=== PATIENT | female | born 1985 | race Caucasian/White ===

== ENCOUNTER → 2017-02-07 | Outpatient (CLI) | payer BC ==
--- NOTE | 2017-02-08 06:31 | REP ---
Clinical: Anatomical evaluation. Comparison: None . Findings: Examination demonstrates a single live intrauterine in cephalic presentation. motion is identified by technologist. Placenta is noted anteriorly and grade eight one without evidence for placenta previa or abruption. Amniotic fluid volume is normal. Cervix measures 3.4 cm in length and appears closed. No evidence for nuchal cord. Gestational age by LMP 19 weeks 5 days with JOSE R 06/29/2017 . Gestational age by current measurements 20 weeks 4 day with JOSE R 06/23/2017 . FHR equals 141 beats per minute. BPD 5.1 21 weeks 2 days HC 18.2 20 weeks 4 days AC 15.1 20 weeks 2 days FL 3.3 20 weeks 2 days HL 3.1 20 weeks 2 days HC/AC ratio 1.21 Estimated weight 314 grams ( 71st percentile). Anatomical assessment demonstrates normal structures including cranium, choroid plexus, cavum, cerebellum/posterior fossa, facial features, lungs, four-chamber heart/ventricular outflow tracts, diaphragm, stomach, cord insertion/three-vessel cord, kidneys/bladder, spine, and extremities. Impression: Single live intrauterine in cephalic presentation demonstrating appropriate interval growth. Anatomical assessment is complete and normal. Incidental echogenic focus within the left cardiac ventricle likely prominent chordae tendineae. Signed by Rajendra Hampton MD 02/08/2017 06:22 A
== END ==
LOC: M RAD 11:09
PROVIDERS: ATTEND Specialist
DX: Z36 Encounter for antenatal screening of mother (principal)

== ENCOUNTER → 2017-03-21 | Outpatient (CLI) | payer BC ==
[2017-03-21 19:48] LABS: BASO % 0.2 % (0.0-1.0); EOS # 0.3 K/mm3 (0.0-0.50); EOS % 3.3 % (0.0-3.0); LARGE UNSTAINED CELL # 0.1 K/mm3 (0.0-0.4); LARGE UNSTAINED CELL % 0.8 % (0.0-4.0); LYMPH # 1.5 K/mm3 (1.5-6.5); LYMPH % 15.2 % (24.0-44.0); MEAN CORPUSCULAR HGB CONC 33.1 g/dl (32.0-36.5); MEAN CORPUSCULAR VOLUME 90.4 fl (80.0-96.0); MONO # 0.6 K/mm3 (0.0-0.8); MONO % 5.8 % (0.0-5.0); NEUTROPHILS # 7.1 K/mm3 (1.8-7.7); NEUTROPHILS % 74.7 % (36.0-66.0); PLATELET COUNT, AUTOMATED 304 k/mm3 (150-450); RED CELL DISTRIBUTION WIDTH 12.3 % (11.5-14.5)
[2017-03-22 08:42] LABS: WHITE BLOOD COUNT 9.5 K/mm3 (4.0-10.0)
== END ==
LOC: M LAB 15:58
PROVIDERS: ATTEND Specialist
DX: Z34.82 Encounter for supervision of other normal pregnancy, second trimester (principal)

== ENCOUNTER → 2017-04-19 | Outpatient (CLI) | payer BC | LOC: M LAB 07:39 | PROVIDERS: ATTEND Specialist | DX: R73.01 Impaired fasting glucose (principal) ==

== ENCOUNTER → 2017-06-07 | Outpatient (REF) | payer BC | LOC: M LAB REF 16:56 | PROVIDERS: ATTEND Obstetrics & Gynecology | DX: Z34.83 Encounter for supervision of other normal pregnancy, third trimester (principal) ==

== ENCOUNTER 2017-06-26 23:16 | Inpatient (IN) | payer BC ==
[~2017-06-26] VITALS: Ht 162.6 cm; Wt 81.0 kg
[2017-06-26] MEDS ORDERED: LACTATED RINGER'S 1000 ML IV STA (23:53)
[2017-06-26] MEDS ORDERED: PENICILLIN G POTASSIUM IV 5 MU in D5W MINI-BAG PLUS 100 ML IV STA (23:53)
[2017-06-26] MEDS ORDERED: LR 1,000 ML IV SCH (23:53)
--- NOTE | 2017-06-27 00:15 | HPEPDOC ---
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 BREAST: . ABDOMEN: Gravid and non-tender to touch. FETUS: Is vertex (VTX) by sterile vaginal examination (SVE), fetus is vertex ( VTX) by Ted. HEART RATE: Regular rate and rhythm. LUNGS: Clear to auscultation (CTA). EXTREMITIES: No edema. No clonus. Deep tendon reflexes (DTRs) + 2. Pertinent Laboratoy Data Blood Type: A+ RBC Antibody Screen: Negative HIV: Negative Hepatitis B: Negative Hepatitis C: Unknown Rapid Plasma Reagin: Nonreactive Rubella: Immune Chlamydia/Gonorrhea: Negative Group B Streptococcus: Positive Glucose Tolerance Test: 147 (Three-hour GTT 77, 59, 91, 67) Diag/Inter Therapy [place] test. Low probability; female fetus Anatomy Ultrasound Ultrasound Date: Feb 07, 2017 Placenta Location: Anterior Normal Anatomy: Yes Placenta Previa: No Other Ultrasounds 12/06/2016, dating ultrasound confirmed dates and viability Steroid Therapy Steroid Therapy: No Vaginal Examination Dilation: 4 cm Effacement: 80% Station: -2 Presentation: Cephalic presentation Assessment Heart Rate (FHR): 135 Variability: Moderate Accelerations: Positive Decelerations: None Tocometer Contractions: Yes Frequency: every 2-2 min. Duration: greater than 60 seconds Strength: palpated as moderate Assessment/Plan Assessment Akin is a 31-year-old (G) 1 para (P) 0 -0 -0-0 at 40 + 0 weeks by 11- week ultrasound. Presents to Labor and Delivery (L&D), in labor. She reports onset of contractions about 7:30 this evening. Spontaneous rupture of membranes , clear fluid upon arrival to the unit. She is breathing with contractions, and is planning an epidural for labor coping. Plan Admit and orient. [employer] and consent. Diet: Clear liquids. Group B Streptococcus (GBS) positive. Labs and intravenous (IV) per unit protocol. Counseled on Pitocin and induction of labor (IOL). Lactated Ringers (LR): Bolus 500 mL, then at 125 mL/hr. Anticipate. Normal spontaneous vaginal . C-S as appropriate. Jennie Pulido CNM Jun 27, 2017 00:15
[2017-06-27 00:43] LABS: MEAN CORPUSCULAR HEMOGLOBIN 29.5 pg (27.0-33.0); MEAN CORPUSCULAR HGB CONC 34.7 g/dl (32.0-36.5); MEAN CORPUSCULAR VOLUME 84.9 fl (80.0-96.0); PLATELET COUNT, AUTOMATED 286 10^3/uL (150-450); RED CELL DISTRIBUTION WIDTH 13.8 % (11.5-14.5)
[2017-06-27] MEDS ORDERED: FENTANYL 2MCG/ML ROPIVACAINE 0.2% IN 0.9% NACL 200ML IVBAG As Ordered ONE (00:50)
--- NOTE | 2017-06-27 03:05 | IPNPDOC ---
Text Note Date of Service The patient was seen on 06/27/17. NOTE Comfortable with epidural UC 2-3 minutes apart x 60 sec, strong FH 130, moderate variability SVE C/C/0 Labor down. Anticipate NSVB VS,Fishbone, I+O VS, Fishbone, I+O Laboratory Tests 06/27/17 00:22 Red Blood Count 3.90 L, Mean Corpuscular Volume 84.9, Mean Corpuscular Hemoglobin 29.5, Mean Corpuscular Hemoglobin Concent 34.7, Red Cell Distribution Width 13.8 Jennie Pulido CNM Jun 27, 2017 03:05
[2017-06-27] MEDS ORDERED: PENICILLIN G POTASSIUM IV 2.5 MU in APPROPRIATE DILUENT 1 EA IV SCH (04:00)
[2017-06-27] MEDS ORDERED: OXYTOCIN 30 UNITS IN 0.9% NaCl 500ML IV BAG (J2590) As Ordered ONE (04:20)
[2017-06-27] MEDS ORDERED: OXYTOCIN DRIP 30 UNITS in APPROPRIATE DILUENT 1 EA IV SCH (05:46)
--- NOTE | 2017-06-27 05:54 | DNPDOC ---
[facility] Delivery Note Delivery Note DATE OF DELIVERY: 06/27/2017 PREDELIVERY DIAGNOSIS: 40-0/7 weeks' gestation and labor. POST DELIVERY DIAGNOSIS: Delivered. PROCEDURE: Spontaneous vaginal delivery. DIRECTOR OF EVENTS: Jennie Pulido ANESTHESIA: Epidural. ESTIMATED BLOOD LOSS: 300 mL. FINDINGS: 7 pound 12 ounce female infant, Score, 8/, 9, no nuchal cord. Compound presentation, right posterior arm DELIVERY SUMMARY: Patient is a 31-year-old 1 now para 1 -0 -0-1 who was admitted to labor and delivery for labor. Patient reported abrupt onset of contractions at 1930 on June 26. Spontaneous rupture of membranes upon arrival to the unit for clear fluid at 2355. She utilized an epidural for labor coping. Fully dilated at 0257. Labor down and started pushing at 0420. Viable female child delivered without difficulty,VILMA compound with the right posterior arm at 0509. Spontaneous respirations. Transitioned on the maternal abdomen. Cord doubly clamped and cut by father of the baby under my direction once the pulsations ceased. Apgars 8 and 9. Placenta delivered Rdz intact with a three-vessel cord at 0517. Fundus firmed with massage and IV Pitocin bolus. Cervix, vagina and perineum inspected. First-degree vaginal and perineal laceration repaired in the usual fashion with 3-0 Vicryl Rapide. Estimated blood loss 300 mL. Infant weight 3510 g, 7 lbs. 12 oz. Parents are naming their daughter Scarlet. Sponge, sharp and instrument count correct at the close of the procedure Jennie Pulido CNM Jun 27, 2017 05:54
[2017-06-27] MEDS ORDERED: MOM 30ML SUSPENSION UDC PO PRN (06:00)
[2017-06-27] MEDS ORDERED: ACETAMINOPHEN 500 MG TAB PO PRN (06:00)
[2017-06-27] MEDS ORDERED: RHOGAM 300 MCG (1500 IU) INJ (J2790) IM SCH (06:00)
[2017-06-27] MEDS ORDERED: ANUSOL HC CREAM 30GM TOP PRN (06:00)
[2017-06-27] MEDS ORDERED: DOCUSATE SODIUM 100 MG CAP PO PRN (06:00)
[2017-06-27] MEDS ORDERED: DIBUCAINE 1% OINTMENT 30GM TOP PRN (06:00)
[2017-06-27] MEDS ORDERED: METHYLERGONOVINE MALEATE 0.2 MG TAB PO PRN (06:00)
[2017-06-27] MEDS ORDERED: MEASLES,MUMPS,RUBELLA VACCINE INJ (MMR-II) (90707) SC SCH (06:00)
[2017-06-27 07:20] VITALS: BP 127/74
[2017-06-27] MEDS: PRENATAL VITAMINS CHEWABLE TABLET PO SCH (09:00)
[2017-06-27 09:14] VITALS: BP 130/71
[2017-06-27 18:00] VITALS: BP 131/73
[2017-06-28] MEDS: IBUPROFEN 800 MG TAB PO PRN ×2 (01:33→14:47)
[2017-06-28 06:02] VITALS: BP 114/60
[2017-06-28] MEDS: PRENATAL VITAMINS CHEWABLE TABLET PO SCH (11:26)
[2017-06-28 17:47] VITALS: BP 122/68
[2017-06-29 06:00] VITALS: BP 130/67
[2017-06-29] MEDS ORDERED: MOTR200T44 PO (07:47)
[2017-06-29] MEDS ORDERED: MILKSUS PO (07:47)
[2017-06-29] MEDS ORDERED: PRENTAB9 PO (07:47)
[2017-06-29] MEDS ORDERED: TYLE325T5 PO (07:47)
[2017-06-29] MEDS ORDERED: COLA100C5 PO (07:47)
[2017-06-29] MEDS: PRENATAL VITAMINS CHEWABLE TABLET PO SCH (09:00)
[2017-06-29] MEDS: IBUPROFEN 800 MG TAB PO PRN (09:00)
== END 2017-06-29 11:00 | disposition home or self-care (01) | DRG 560 ==
LOC: M LDO 23:16 → M LDI 23:54 → M OBS 06-27 09:05
PROVIDERS: ADMIT Advanced Practice Midwife; ATTEND Advanced Practice Midwife
PROC: 10E0XZZ Delivery of Products of Conception, External Approach (ICD-10-PCS; principal; 2017-06-27)
PROC: 0HQ9XZZ Repair Perineum Skin, External Approach (ICD-10-PCS; 2017-06-27)
DX: O48.0 Post-term pregnancy (principal); O64.5XX0 Obstructed labor due to compound presentation, not applicable or unspecified; O99.824 Streptococcus B carrier state complicating childbirth; Z37.0 Single live birth; Z3A.40 40 weeks gestation of pregnancy; O70.0 First degree perineal laceration during delivery

== ENCOUNTER → 2018-09-17 | Outpatient (CLI) | payer BC ==
[~2018-09-17] MED LIST: COLA100C5 PO; MILK120011 PO; MOTR200T44 PO; PRENTAB9 PO; TYLE325T5 PO
[2018-09-17 13:22] LABS: BASO # 0.1 10^3/uL (0.0-0.2); BASO % 0.7 % (0.0-1.0); EOS # 0.2 10^3/uL (0.0-0.50); HEMATOCRIT 38.2 % (36.0-47.0); HEMOGLOBIN 13.1 g/dl (12.0-15.5); LYMPH # 1.3 10^3/uL (1.5-4.5); LYMPH % 14.2 % (24.0-44.0); MEAN CORPUSCULAR HEMOGLOBIN 30.1 pg (27.0-33.0); MEAN CORPUSCULAR HGB CONC 34.3 g/dl (32.0-36.5); MEAN CORPUSCULAR VOLUME 87.8 fl (80.0-96.0); MONO # 0.5 10^3/uL (0.0-0.8); MONO % 5.7 % (0.0-5.0); NEUTROPHILS # 6.8 10^3/uL (1.8-7.7); NEUTROPHILS % 77.1 % (36.0-66.0); PLATELET COUNT, AUTOMATED 305 10^3/uL (150-450); RED BLOOD COUNT 4.35 10^6/uL (4.00-5.40); WHITE BLOOD COUNT 8.8 10^3/uL (4.0-10.0)
[2018-09-17 15:17] LABS: CHLAMYDIA DNA AMPLIFICATION NEGATIVE (NEGATIVE); GC DNA AMPLIFICATION NEGATIVE (NEGATIVE)
[2018-09-18 10:16] LABS: HEPATITIS C VIRUS ABY INDEX < 0.0 INDEX (<0.8); HIV 1&2 SCREEN CENTAUR NEGATIVE (NEGATIVE); RUBELLA IgG QUALITATIVE IMMUNE (IMMUNE)
== END ==
LOC: M SMT 09:36
PROVIDERS: ATTEND Advanced Practice Midwife
DX: O30.001 Twin pregnancy, unspecified number of placenta and unspecified number of amniotic sacs, first trimester (principal); Z3A.00 Weeks of gestation of pregnancy not specified

== ENCOUNTER → 2018-10-02 | Outpatient (CLI) | payer BC ==
--- NOTE | 2018-10-02 17:37 | REP ---
TWIN OB ULTRASOUND: Real-time sonographic evaluation of the gravid uterus is performed. There is a living diamniotic dichorionic twin gestation. Placenta anterior and grade 1. Placenta appears low lying. Approximate distance between the internal cervical os in the lower tip of the placenta is 8 mm but it should be noted that this is based on transabdominal images with a moderately distended bladder. More precise evaluation could be made with transvaginal imaging. There is no evidence of placental abruption. The cervix is closed and measures about 3.2 cm in length. Estimated gestational age is 14 weeks 2 days, EDC 03/31/2019. FETUS A: BPD 29 mm = 15 weeks 2 days HC 106 mm = 15 weeks 0 days HC 90 mm= 15 weeks 1 day Femur length 16 mm = 14 weeks 5 days HC/AC ratio 1.18 within normal range. Estimated weight 112 grams, 73rd percentile. heart rate 150 beats per minute. Lateral ventricles, posterior fossa, stomach, kidneys, bladder, and cord insertion was visualized and grossly unremarkable. position is breech on the maternal right side. Amniotic fluid appears within normal limits. FETUS B: BPD 29 mm = 15 weeks 1 day HC 104 mm = 14 weeks 6 days HC 89 mm= 15 weeks 1 day Femur length 16 mm = 14 weeks 6 days HC/AC ratio 1.17 within normal range. Estimated weight 111 grams, 71st percentile. heart rate 157 beats per minute. Lateral ventricles, posterior fossa, stomach and kidneys are visualized and are grossly unremarkable. position is vertex on the maternal right side. Amniotic fluid appears within normal limits. Recommend followup anatomic screening ultrasound exam at 20 weeks gestational age. Electronically Signed by Todd An MD 10/03/2018 11:41 A
== END ==
LOC: M SMT 12:51
PROVIDERS: ATTEND Advanced Practice Midwife
DX: O30.041 Twin pregnancy, dichorionic/diamniotic, first trimester (principal); Z3A.14 14 weeks gestation of pregnancy

== ENCOUNTER → 2018-11-13 | Outpatient (CLI) | payer BC ==
--- NOTE | 2018-11-13 20:04 | REP ---
Clinical: Twin gestation. Comparison: 10/02/2018 . Findings: Examination demonstrates diamniotic monochorionic twin gestation. Cervix measures 3.5 cm in length and appears closed. Concordant growth is noted. Gestational age by LMP at 20 weeks 2 days with estimated date of delivery 03/31/2019 . TWIN A: Twin A identified in cephalic presentation along the maternal right side. Placenta is noted anterior and grade I without evidence for placenta previa or abruption. motion is appreciated. Amniotic fluid volume is normal and the deepest pocket measures 6.6 cm. FHR equals 141 beats per minute. Gestational age by current measurements: 21 weeks 1 day . Estimated weight 401 grams ( 76th percentile). Anatomical assessment demonstrates normal structures including cranium, choroid plexus, cavum, cerebellum/posterior fossa, facial features, lungs, four-chamber heart/ventricular outflow tracts, diaphragm, stomach, cord insertion/three-vessel cord, kidneys/bladder, spine, and extremities. ------- TWIN B: Twin B identified in transverse (head to maternal right) presentation along the maternal left/midline side. Placenta is noted anterior and grade I without evidence for placenta previa or abruption. motion is appreciated. Amniotic fluid volume is normal and the deepest pocket measures 4.1 cm. FHR equals 153 beats per minute. Gestational age by current measurements: 21 weeks 1 day . Estimated weight 431 grams ( 92nd percentile). Anatomical assessment demonstrates normal structures including cranium, choroid plexus, cavum, cerebellum/posterior fossa, facial features, lungs, diaphragm, stomach, cord insertion/three-vessel cord, bladder, and extremities. Limited evaluation of the heart/ventricular outflow tracts and spine. Impression: 1. Diamniotic monochorionic twin gestation demonstrating appropriate concordant growth. No gross abnormalities are identified. 2. Anatomical assessment of twin A is normal. Anatomical assessment of twin B again demonstrates limitations as described above. Electronically Signed by Rajendra Hampton MD 11/13/2018 07:55 P
== END ==
LOC: M RAD 09:52
PROVIDERS: ATTEND Specialist
DX: O30.032 Twin pregnancy, monochorionic/diamniotic, second trimester (principal); Z3A.21 21 weeks gestation of pregnancy

== ENCOUNTER → 2018-11-27 | Outpatient (CLI) | payer BC ==
--- NOTE | 2018-11-27 18:48 | REP ---
Clinical: Twin gestation. Anatomical evaluation Comparison: 11/13/2018 . Findings: Examination demonstrates diamniotic dichorionic twin gestation. Cervix measures 4.0 cm in length and appears closed. Concordant growth is noted. Gestational age by LMP at 22 weeks 2 days with estimated date of delivery 03/31/2019 TWIN A: Twin A identified in cephalic presentation along the maternal right side. Placenta is noted anterior and grade grade zero without evidence for placenta previa or abruption. motion is appreciated. Amniotic fluid volume is normal and the deepest pocket measures 4.6 cm. FHR equals 147 beats per minute. Gestational age by current measurements: 23 weeks 3 days . Estimated weight 576 grams ( 76 percentile). Anatomical assessment demonstrates normal structures including cranium, choroid plexus, cavum, cerebellum/posterior fossa, diaphragm, stomach, cord insertion/three-vessel cord, kidneys/bladder, spine, and extremities. ------- TWIN B: Twin B identified in transverse (head to maternal left) presentation along the maternal left side. Placenta is noted anterior and grade grade zero without evidence for placenta previa or abruption. motion is appreciated. Amniotic fluid volume is normal and the deepest pocket measures 6.9 cm. FHR equals 139 beats per minute. Gestational age by current measurements: 23 weeks 3 days . Estimated weight 625 grams ( 94 percentile). Anatomical assessment demonstrates normal structures including cranium, choroid plexus, cavum, cerebellum/posterior fossa, facial features, lungs, four-chamber heart/ventricular outflow tracts, diaphragm, stomach, cord insertion/three-vessel cord, kidneys/bladder, spine and extremities. Impression: Diamniotic dichorionic twin gestation demonstrating appropriate concordant growth. No gross abnormalities are identified. In conjunction with prior examination anatomical assessments are complete and normal. Electronically Signed by Rajendra Hampton MD 11/27/2018 06:39 P
== END ==
LOC: M RAD 17:33
PROVIDERS: ATTEND Specialist
DX: O30.042 Twin pregnancy, dichorionic/diamniotic, second trimester (principal); Z3A.23 23 weeks gestation of pregnancy

== ENCOUNTER → 2019-01-02 | Outpatient (CLI) | payer BC ==
[~2019-01-02] MED LIST changes: +TUMS500C PO
--- NOTE | 2019-01-03 08:01 | REP ---
Clinical: Twin gestation. Growth evaluation Comparison: 11/27/2018 . Findings: Examination demonstrates diamniotic dichorionic twin gestation. Cervix measures 3.0 cm cm in length and appears closed. Concordant growth is noted. Gestational age by LMP at 27 weeks 3 days with estimated date of delivery 03/31/2019 . TWIN A: Twin A identified in cephalic presentation along the maternal right side. Placenta is noted anterior and grade one without evidence for placenta previa or abruption. motion is appreciated. Amniotic fluid volume is normal and the deepest pocket measures 6.0 cm. FHR equals 152 beats per minute. BPD 7.4 cm 29 weeks 4 days HC 26.7 cm 29 weeks 0 days AC 23.8 cm 28 weeks 1 day FL 5.2 cm 27 weeks 6 days HL 4.8 cm 28 weeks 0 days HC/AC ratio 1.12 Gestational age by current measurements: 28 weeks 4 days . Umbilical cord SD ratio 2.82 Estimated weight 1194 grams ( 63 percentile). Limited anatomical assessment without obvious abnormality. ------- TWIN B: Twin B identified in transverse (head to maternal right) presentation along the maternal left side. Placenta is noted anterior and grade one without evidence for placenta previa or abruption. motion is appreciated. Amniotic fluid volume is normal and the deepest pocket measures 5.6 cm. FHR equals 132 beats per minute. BPD 7.2 cm 29 weeks 0 days HC 26.7 cm 29 weeks 1 day AC 25.3 cm 29 weeks 4 days FL 5.3 cm 28 weeks 2 days HL 4.8 cm 28 weeks 2 days HC/AC ratio 1.05 Gestational age by current measurements: 28 weeks 6 days . Umbilical cord SD ratio 2.82 Estimated weight 1322 grams ( 84 percentile). Limited anatomical assessment without obvious abnormality. Impression: 1. Diamniotic dichorionic twin gestation demonstrating appropriate concordant growth. 2. Umbilical cord SD ratios are minimally below normal range. Electronically Signed by Rajendra Hampton MD 01/03/2019 07:52 A
== END ==
LOC: M RAD 17:22
PROVIDERS: ATTEND Specialist
DX: O30.042 Twin pregnancy, dichorionic/diamniotic, second trimester (principal); Z3A.28 28 weeks gestation of pregnancy

== ENCOUNTER 2019-01-10 09:02 | Outpatient (CLI) | payer BC ==
[~2019-01-10] VITALS: Ht 160 cm; Wt 76.3 kg
[~2019-01-10 09:02] MED LIST changes: -TUMS500C PO
[2019-01-10 09:23] VITALS: BP 117/58
[2019-01-10] MEDS ORDERED: LACTATED RINGER'S 1000 ML IV ONE (09:45)
[2019-01-10] MEDS ORDERED: LR 1,000 ML IV SCH (09:45)
[2019-01-10 09:58] LABS: APPEARANCE, URINE CLEAR (CLEAR); BACTERIA, URINE AUTO 1+ (NEGATIVE); BILIRUBIN, URINE AUTO NEGATIVE (NEGATIVE); BLOOD, URINE BLOOD NEGATIVE (NEGATIVE); COLOR, URINE STRAW (YELLOW); GLUCOSE, URINE (UA) AUTO NEGATIVE (NEGATIVE); KETONE, URINE AUTO NEGATIVE (NEGATIVE); LEUKOCYTE ESTERASE, URINE AUTO TRACE (NEGATIVE); NITRITE, URINE AUTO NEGATIVE (NEGATIVE); PROTEIN, URINE AUTO NEGATIVE (NEGATIVE); RBC, URINE AUTO 0 /HPF (0-3); SPECIFIC GRAVITY URINE AUTO 1.002 (1.002-1.035); SQUAMOUS EPITHELIAL CELL UR AU 1 /HPF (0-6); UROBILINOGEN, URINE AUTO 0.2 mg/dL (0.0-2.0); WBC, URINE AUTO 0 /HPF (0-3)
[2019-01-10 10:17] LABS: HEMATOCRIT 35.1 % (36.0-47.0); HEMOGLOBIN 12.1 g/dl (12.0-15.5); MEAN CORPUSCULAR HEMOGLOBIN 30.3 pg (27.0-33.0); MEAN CORPUSCULAR HGB CONC 34.5 g/dl (32.0-36.5); PLATELET COUNT, AUTOMATED 268 10^3/uL (150-450); RED BLOOD COUNT 3.99 10^6/uL (4.00-5.40); WHITE BLOOD COUNT 9.9 10^3/uL (4.0-10.0)
[2019-01-10 10:31] LABS: CREATININE,RANDOM URINE 18.8 MG/DL; TOTAL PROTEIN,RANDOM URINE 5.6 MG/DL (0.0-12.0)
[2019-01-10 10:43] LABS: ALT/SGPT 17 U/L (12-78); BILIRUBIN,TOTAL 0.3 MG/DL (0.2-1.0); CREATININE FOR GFR 0.46 MG/DL (0.55-1.30); GLOMERULAR FILTRATION RATE > 60.0 (>60); LDH LACTATE DEHYDROGENASE 171 U/L (84-246); URIC ACID 2.5 MG/DL (2.6-6.0)
[2019-01-10] MEDS ORDERED: TUMS500C PO (10:46)
--- NOTE | 2019-01-10 11:31 | REP ---
Clinical: Twin gestation. Threatened . Comparison: 01/02/2019 . Findings: Examination demonstrates diamniotic dichorionic twin gestation. Cervix measures 2.1 cm in length and appears closed. Gestational age by LMP at 28 weeks 4 days with estimated date of delivery 03/31/2019 . TWIN A: Twin A identified in cephalic presentation along the maternal right side. Placenta is noted anterior and grade one without evidence for placenta previa or abruption. motion is appreciated. Amniotic fluid volume is normal and the deepest pocket measures 4.8 cm. FHR equals 149 beats per minute. Umbilical Doppler SD ratio: 2.98 ------- TWIN B: Twin B identified in breech presentation along the maternal left side. Placenta is noted anterior and grade one without evidence for placenta previa or abruption. motion is appreciated. Amniotic fluid volume is normal and the deepest pocket measures 4.1 cm. FHR equals 149 beats per minute. The umbilical Doppler SD ratio: 3.23 Impression: Known diamniotic dichorionic twin gestation. Cervix measures 2.1 cm in length and appears closed. Amniotic fluid volume is within normal range. Umbilical cord Doppler SD ratios are minimally low. Electronically Signed by Rajendra Hampton MD 01/10/2019 11:22 A
--- NOTE | 2019-01-10 11:38 | IPNPDOC ---
Text Note Date of Service The patient was seen on 01/10/19. NOTE 33yo JOSE R 03/31/19. Presents @ 28w4d, known twin gestation. Reports visual disturbances with pelvic pressure and sporadic cramping. Denies LOF or bleeding. Babies are active. Cat I tracing x 2 Mild uterine irritability, sporadic UC SSE cervix visually LTC, FFN obtained TVUS shows cervix 2.1cm, minimal funneling of inner os AZIZA 4.1/4.8 (deepest pocket) PreE panel WNL Reviewed pt status with Dr Obrien. OK for discharge Warnings reviewed. Keep next appt this Sunday. VS,Fishbone, I+O VS, Fishbone, I+O Laboratory Tests 01/10/19 10:04 Red Blood Count 3.99 L, Mean Corpuscular Volume 88.0, Mean Corpuscular Hemoglobin 30.3, Mean Corpuscular Hemoglobin Concent 34.5, Red Cell Distribution Width 12.5, Aspartate Amino Transf (AST/SGOT) 22, Alanine Aminotransferase (ALT/SGPT) 17, Lactate Dehydrogenase 171, Total Bilirubin 0.3, Uric Acid 2.5 L Vital Signs Date Time Temp Pulse Resp B/P (MAP) Pulse Ox O2 Delivery O2 Flow Rate FiO2 01/10/19 09:23 97.9 108 18 117/58 (77) Jennie Pulido CNM Jan 10, 2019 11:38
== END 2019-01-10 12:07 | disposition home or self-care (01) ==
LOC: M LDO 09:02
PROVIDERS: ATTEND Advanced Practice Midwife
DX: O30.003 Twin pregnancy, unspecified number of placenta and unspecified number of amniotic sacs, third trimester (principal); R10.9 Unspecified abdominal pain; O26.893 Other specified pregnancy related conditions, third trimester; O99.89 Other specified diseases and conditions complicating pregnancy, childbirth and the puerperium; H53.9 Unspecified visual disturbance; Z3A.28 28 weeks gestation of pregnancy

== ENCOUNTER → 2019-02-06 | Outpatient (CLI) | payer BC ==
[~2019-02-06] MED LIST changes: +TUMS500C PO
--- NOTE | 2019-02-06 17:59 | REP ---
Clinical: Twin gestation. Comparison: 01/10/2019 . Findings: Examination demonstrates diamniotic dichorionic twin gestation. Cervix measures 3.3 cm in length and appears closed. Concordant growth is noted. Gestational age by LMP at 32 weeks 3 days with estimated date of delivery 03/31/2019 . TWIN A: Twin A identified in cephalic presentation along the maternal right side. Placenta is noted anterior and grade zero without evidence for placenta previa or abruption. motion is appreciated. Amniotic fluid volume is normal and the deepest pocket measures 4.6 cm. FHR equals 141 beats per minute. BPD 8.6 cm 34 weeks 4 days HC 30.7 cm 34 weeks 1 day AC 29.4 cm 33 weeks 3 days FL 6.5 cm 33 weeks 3 days HL 5.5 cm 81 weeks 6 days HC/AC ratio 1.04 Gestational age by current measurements: 33 weeks 3 days . Estimated weight 2236 grams ( 68 percentile). Biophysical profile score: 02/13 ------- TWIN B: Twin B identified in cephalic presentation along the maternal left side. Placenta is noted anterior and grade zero without evidence for placenta previa or abruption. motion is appreciated. Amniotic fluid volume is normal and the deepest pocket measures 3.9 cm. FHR equals 139 beats per minute. BPD 8.4 cm 34 weeks 0 days HC 30.5 cm 34 weeks 0 days AC 31.7 cm 35 weeks 4 days FL 6.7 cm 34 weeks 2 days HL 5.7 cm 33 weeks 1 day HC/AC ratio 0.96 Gestational age by current measurements: 34 weeks 1 day . Estimated weight 2539 grams ( 96 percentile). Biophysical profile score: 88 Impression: Diamniotic dichorionic twin gestation demonstrating appropriate interval growth of each twin. No gross abnormalities. Electronically Signed by Rajendra Hampton MD 02/06/2019 05:51 P
== END ==
LOC: M RAD 16:25
PROVIDERS: ATTEND Obstetrics & Gynecology
DX: O30.043 Twin pregnancy, dichorionic/diamniotic, third trimester (principal); Z3A.33 33 weeks gestation of pregnancy; Z3A.34 34 weeks gestation of pregnancy

== ENCOUNTER → 2019-02-13 | Outpatient (CLI) | payer BC ==
[2019-02-13 13:09] LABS: HEMATOCRIT 36.3 % (36.0-47.0); MEAN CORPUSCULAR HEMOGLOBIN 29.3 pg (27.0-33.0); MEAN CORPUSCULAR HGB CONC 33.1 g/dl (32.0-36.5); MEAN CORPUSCULAR VOLUME 88.5 fl (80.0-96.0); PLATELET COUNT, AUTOMATED 253 10^3/uL (150-450); WHITE BLOOD COUNT 9.2 10^3/uL (4.0-10.0)
== END ==
LOC: M LAB 10:56
PROVIDERS: ATTEND Obstetrics & Gynecology
DX: O30.033 Twin pregnancy, monochorionic/diamniotic, third trimester (principal); Z3A.00 Weeks of gestation of pregnancy not specified

== ENCOUNTER → 2019-02-25 | Outpatient (REF) | payer BC | LOC: M LAB REF 17:22 | PROVIDERS: ATTEND Obstetrics & Gynecology | DX: O30.033 Twin pregnancy, monochorionic/diamniotic, third trimester (principal); Z3A.00 Weeks of gestation of pregnancy not specified ==

== ENCOUNTER → 2019-02-27 | Outpatient (CLI) | payer BC ==
[~2019-02-27] MED LIST changes: +ACET-683 PO; +OXYC1TAB23 PO
--- NOTE | 2019-02-28 08:25 | REP ---
Obstetric ultrasound, third trimester, twin gestation: There is a diamniotic dichorionic twin gestation. Both placentas are anterior and grade 1 maturity. There is no placenta previa or abruptio. The cervix measures 3.0 cm length. Twin A is in a vertex presentation on the maternal right. Twin B is in a vertex presentation on the maternal left. Subjectively the amniotic fluid volume of each twin A is normal. The deepest amniotic fluid pocket for twin A is 4.2 cm and twin B 4.6 cm. The heart rate of twin A is 163 beats per minute. Twin B 123 beats per minute. Gestational age for twin A is 35 weeks 3 days. Gestational age for twin B is 36 weeks 0 days. The JOSE R for 35 weeks 3 days is 03/31/2019. Gestational age by the first ultrasound is 36 weeks 1 day/JOSE R 03/26/2019. Gestational age by LMP is 35 weeks 3 days/JOSE R 03/31/2019. weight for twin A is 2728 grams/6 pounds, 0 ounces. weight for twin B is 2992 grams/6 pounds, 9 ounces. This is the 53rd percentile for twin A and 72nd percentile for twin B. Umbilical artery Doppler assessment: Twin A: S/D ratio 2.61 (2.30-3.30) Resistive Index 0.62 (0.59-0.75 Diastolic Velocity 14 0.0 (>10 cm/sec) Twin B: S/D ratio 2.59 (2.30-3.30) Resistive Index 0.61 (0.59-0.75 Diastolic Velocity 16.3 (>10 cm/sec) Electronically Signed by Todd Slade MD 02/28/2019 08:16 A
== END ==
LOC: M RAD 16:18
PROVIDERS: ATTEND Obstetrics & Gynecology
DX: O30.043 Twin pregnancy, dichorionic/diamniotic, third trimester (principal); Z3A.36 36 weeks gestation of pregnancy

== ENCOUNTER 2019-03-08 16:40 | Inpatient (IN) | payer BC ==
[2019-03-08] VITALS (9 sets, daily range): BP systolic 128–159; BP diastolic 72–102
[~2019-03-08 16:40] MED LIST changes: -ACET-683 PO; -OXYC1TAB23 PO
[2019-03-08] MEDS ORDERED: OXYTOCIN 30 UNITS IN 0.9% NaCl 500ML IV BAG (J2590) As Ordered ONE (16:47)
[2019-03-08] MEDS ORDERED: METHYLERGONOVINE MALEATE 0.2 MG TAB PO PRN (17:45)
[2019-03-08] MEDS ORDERED: DOCUSATE SODIUM 100 MG CAP PO PRN (17:45)
[2019-03-08] MEDS ORDERED: DIBUCAINE 1% OINTMENT 30GM TOP PRN (17:45)
[2019-03-08] MEDS ORDERED: ONDANSETRON 4MG/2ML VIAL (J2405) IV PRN (17:45)
[2019-03-08] MEDS ORDERED: RHOGAM 300 MCG (1500 IU) INJ (J2790) IM SCH (17:45)
[2019-03-08] MEDS ORDERED: ACETAMINOPHEN TAB 650MG DOSE (2X325MG) PO PRN (17:45)
[2019-03-08] MEDS ORDERED: IBUPROFEN 600 MG TAB PO PRN (17:45)
[2019-03-08] MEDS ORDERED: OXYTOCIN DRIP 30 UNITS in IV 1 EA IV ONE (17:45)
[2019-03-08] MEDS ORDERED: MEASLES,MUMPS,RUBELLA VACCINE INJ (MMR-II) (90707) SC SCH (17:45)
[2019-03-08] MEDS ORDERED: LIDOCAINE 1% MDV 20ML VIAL INFIL ONE (18:00)
[2019-03-08] MEDS: IBUPROFEN 800 MG TAB PO PRN (19:50)
[2019-03-08] MEDS ORDERED: ACET-683 PO (20:20)
[2019-03-08] MEDS: ACETAMINOPHEN 500 MG TAB PO PRN (21:31)
[2019-03-09] MEDS: IBUPROFEN 800 MG TAB PO PRN ×2 (05:26→12:13)
[2019-03-09 06:48] VITALS: BP 129/69
[2019-03-09] MEDS: PRENATAL VITAMINS CHEWABLE TABLET PO SCH (08:55)
[2019-03-09] MEDS: ACETAMINOPHEN 500 MG TAB PO PRN ×3 (08:55→22:43)
[2019-03-09] MEDS ORDERED: ADACEL/BOOSTRIX VACCINE (DIPHTH/PERTUSS/ACELL/TETANUS)0.5ML SYR (90715) IM PRN (11:45)
--- NOTE | 2019-03-09 11:46 | DN ---
DATE OF DELIVERY: 03/08/2019 PREDELIVERY DIAGNOSES: 36-5/7 weeks' gestation, monochorionic, diamniotic (mono, di) twins, labor, spontaneous rupture of membrane twin A. POSTDELIVERY DIAGNOSIS: Delivered. PROCEDURE: Spontaneous vaginal delivery. OLERICULTURE PROFESSOR: Jenaro Obrien MD ANESTHESIA: None. ESTIMATED BLOOD LOSS: 500 mL. FINDINGS: Twin A, 5-pound 11-ounce male, scores 8 and 9. Twin B, 6-pound 9-ounce male, scores 9 and 9. DELIVERY SUMMARY: The patient presented fully dilated with twin A in the ambulance. Twin A delivered very quickly, a spontaneous delivery of a 5-pound 11-ounce male infant, scores 8 and 9. There was no nuchal cord. The shoulders delivered with ease. The cord was doubly clamped and cut. The was handed off to the awaiting nurses. After a short while, membranes were ruptured for twin B, which was found to be vertex. The patient pushed between 5-10 minutes for spontaneous delivery of a 6-pound 9-ounce male , scores 9 and 9. There was no nuchal cord. The shoulders delivered with ease. The cord was doubly clamped and cut. The was handed off to the awaiting nurses. The placenta delivered spontaneously and appeared to be intact. Upon observation, there appeared to be a mono di placenta, as previously suspected. The patient received intravenous (IV) Pitocin immediately after delivery of the placenta. A small secondary perineal laceration was repaired under local anesthesia with 2-0 chromic in the usual fashion. Sponge and needle counts were correct.
[2019-03-09 18:00] VITALS: BP 133/75
[2019-03-10] MEDS: IBUPROFEN 800 MG TAB PO PRN (03:53)
[2019-03-10 05:52] VITALS: BP 118/83
--- NOTE | 2019-03-10 08:06 | HPE ---
DATE OF ADMISSION: 03/08/2019 33-year-old, 2, para 1 female at 36 and 5/7 weeks gestation by last menstrual period plus 5 week ultrasound, twin , presents after breaking her water at home on the day of admission. Contractions became intense. Her initially started driving her from [place] to the hospital, he stopped and called an ambulance shelter because she was about to deliver. COURSE: The patient initiated care at 12 weeks gestation, 09/17/2018. First trimester blood pressure was 118/72. She was diagnosed with mono di twin and had no further complications. OBSTETRICAL HISTORY: 01/2017, 40 week vaginal delivery of a 7 pound 12 ounce female infant. MEDICAL HISTORY: Noncontributory. SURGICAL HISTORY: Foot surgery. ALLERGIES: None. SOCIAL HISTORY: The patient is . She lives in [place]. She denies cigarettes, alcohol or drug use. FAMILY HISTORY: Noncontributory. PHYSICAL EXAMINATION: Blood pressure 134/74, pulse 84. She appears uncomfortable. HEAD AND NECK: Normal. LUNGS: Clear. HEART: Regular rate and rhythm. ABDOMEN: Nontender. Gravid. Category 1. STERILE VAGINAL EXAM: 10 cm dilated, twin A appears to be at the time of admission. EXTREMITIES: Nontender. LABORATORIES: Blood type A positive, Rubella immune. RPR nonreactive. Group B streptococcus (GBS) positive. ASSESSMENT: 33-year-old 2, para 1 female at 36 and 5/7 weeks gestation, twins, presents in active labor. PLAN: The patient was admitted on 03/08/2019. Anticipate vaginal delivery.
[2019-03-10] MEDS: PRENATAL VITAMINS CHEWABLE TABLET PO SCH (08:08)
[2019-03-10] MEDS: ACETAMINOPHEN 500 MG TAB PO PRN (10:31)
[2019-03-10 18:21] VITALS: BP 133/81
== END 2019-03-10 18:45 | disposition home or self-care (01) | DRG 560 ==
LOC: M LDI 16:40 → M OBS 21:04
PROVIDERS: ADMIT Specialist; ATTEND Specialist
PROC: 10E0XZZ Delivery of Products of Conception, External Approach (ICD-10-PCS; principal; 2019-03-08)
PROC: 0KQM0ZZ Repair Perineum Muscle, Open Approach (ICD-10-PCS; 2019-03-08)
DX: O30.033 Twin pregnancy, monochorionic/diamniotic, third trimester (principal); Z3A.36 36 weeks gestation of pregnancy; Z37.2 Twins, both liveborn; O99.824 Streptococcus B carrier state complicating childbirth; O70.1 Second degree perineal laceration during delivery

== ENCOUNTER 2019-06-11 08:34 | Day surgery (SDC) | payer BC ==
[~2019-06-11] VITALS: Ht 162.6 cm; Wt 65.8 kg
[~2019-06-11 08:34] MED LIST changes: +ACET-683 PO; +LIDOCAINE 1% MDV 20ML VIAL SQ PRN; +LR 1,000 ML IV ONE
[2019-06-11 09:05] LABS: HEMATOCRIT 39.7 % (36.0-47.0); HEMOGLOBIN 12.7 g/dl (12.0-15.5); MEAN CORPUSCULAR HEMOGLOBIN 28.2 pg (27.0-33.0); PLATELET COUNT, AUTOMATED 404 10^3/uL (150-450); RED BLOOD COUNT 4.51 10^6/uL (4.00-5.40); WHITE BLOOD COUNT 9.7 10^3/uL (4.0-10.0)
[2019-06-11] MEDS ORDERED: BUPIVACAINE HCL 0.25% 10 ML VIAL As Ordered ONE (09:26)
[2019-06-11] MEDS ORDERED: LIDOCAINE 2% INJ 100 MG/5 ML SDV (FOR ANES.) As Ordered ONE (09:59)
[2019-06-11] MEDS ORDERED: HYDROmorphone HCL 2 MG/ML 1ML VIAL (J1170) As Ordered ONE (09:59)
[2019-06-11] MEDS ORDERED: MIDAZOLAM INJ 2 MG/2 ML VIAL (J2250) As Ordered ONE (09:59)
[2019-06-11] MEDS ORDERED: ROCURONIUM BROMIDE 50 MG/5 ML VIAL As Ordered ONE (09:59)
[2019-06-11] MEDS ORDERED: KETOROLAC 60 MG/2 ML VIAL (J1885) As Ordered ONE (09:59)
[2019-06-11] MEDS ORDERED: dexameTHASONE 4 MG/ML 1ML VIAL (J1100) As Ordered ONE (09:59)
[2019-06-11] MEDS ORDERED: ONDANSETRON 4MG/2ML VIAL (J2405) As Ordered ONE (09:59)
[2019-06-11] MEDS ORDERED: PROPOFOL 200 MG/20 ML VIAL As Ordered ONE (09:59)
[2019-06-11] MEDS ORDERED: fentaNYL 100 MCG/2 ML INJECTION (J3010) As Ordered ONE (09:59)
[2019-06-11] MEDS ORDERED: SUGAMMADEX SODIUM 500 MG/5 ML VIAL (BRIDION) As Ordered ONE (10:03)
[2019-06-11] MEDS ORDERED: OXYC1TAB23 PO (10:40)
[2019-06-11] MEDS ORDERED: PERCOCET 5MG/325MG TAB PO PRN ×2 (11:00)
[2019-06-11] MEDS ORDERED: fentaNYL 100 MCG/2 ML INJECTION (J3010) IV PRN (11:00)
[2019-06-11] MEDS ORDERED: LR 1,000 ML IV SCH ×2 (11:00)
[2019-06-11] MEDS ORDERED: ONDANSETRON 4MG/2ML VIAL (J2405) IV PRN (11:00)
[2019-06-11] MEDS ORDERED: METOCLOPRAMIDE INJ 10MG/2ML VIAL (J2765) IV PRN (11:00)
[2019-06-11 11:27] VITALS: BP 104/57
--- NOTE | 2019-06-11 11:29 | RO ---
DATE OF PROCEDURE: 06/11/2019 PREOPERATIVE DIAGNOSIS: Undesired fertility. POSTOPERATIVE DIAGNOSIS: Undesired fertility. PROCEDURE: Laparoscopic bilateral salpingectomy. SURGEON: Dr. Jenaro Obrien [employer] TECHNICIAN: ANESTHESIA: General endotracheal. ESTIMATED BLOOD LOSS: 10 mL. URINE OUTPUT: 100 mL. FINDINGS: Normal pelvis including uterus, fallopian tubes and ovaries. Normal upper abdomen including liver, stomach, appendix and intestines. OPERATIVE SUMMARY: Patient taken to the operating room where general endotracheal anesthesia was induced. She was prepped and draped in sterile fashion in the dorsal lithotomy position. Pierre catheter was placed. A sponge stick was placed in the vagina to use as a manipulator. A periumbilical incision was made with the scalpel. A Veress needle was placed through this incision while tenting up on the skin of the abdomen. Intra-abdominal location of the Veress needle was assessed with the use of a saline filled syringe. A pneumoperitoneum was created. The Veress needle was removed. A 5 mm trocar using Visiport was inserted through this incision. Two 5 mm suprapubic ports were placed under direct visualization without difficulty. A LigaSure device was utilized. The grasping instrument used to elevate the fallopian tubes. The LigaSure device was used to coagulate and incise broad ligament attachments to the fallopian tubes and the fallopian tube then excised near its origin. Both tubes were removed through the suprapubic ports. The pneumoperitoneum was released. All instruments removed. Sponge, instrument and needle counts were correct. The skin was closed with #4-0 Monocryl subcuticular sutures. The patient was extubated and went to the recovery in stable condition.
== END 2019-06-11 13:07 | disposition home or self-care (01) ==
LOC: M SDC 08:34
PROVIDERS: ATTEND Specialist
DX: Z30.2 Encounter for sterilization (principal)
CPT/HCPCS: 36415; 58661; 81025; 85027; 88302; J1100; J1170; J1885; J2250; J2405; J3010

== ENCOUNTER → 2023-05-17 | Outpatient (CLI) | payer BC ==
[~2023-05-17] MED LIST changes: +GASTROGRAFIN SOLUTION 30ML As Ordered ONE; +ISOVUE-370 76% 100ML VIAL As Ordered ONE; -LIDOCAINE 1% MDV 20ML VIAL SQ PRN; -LR 1,000 ML IV ONE; +OXYC1TAB23 PO
== END ==
LOC: M RAD 10:43
PROVIDERS: ATTEND Physician Assistant
DX: R10.813 Right lower quadrant abdominal tenderness (principal); R50.9 Fever, unspecified; R93.5 Abnormal findings on diagnostic imaging of other abdominal regions, including retroperitoneum
CPT/HCPCS: 74177; Q9963; Q9967